=== PATIENT | female | born 1965 | race Hispanic/Latino ===

== ENCOUNTER 2017-04-12 16:18 | Emergency (ER) | payer OTHER ==
--- NOTE | 2017-04-13 11:25 | RAD ---
PROCEDURE: Left Wrist Radiographs. HISTORY: POST REDUCTION LEFT WRIST COMPARISON: None. FINDINGS: BONES: Anatomic alignment noted post close reduction. Limitations of the current study: Detail obscured by overlying fiberglass cast. JOINTS: Normal. No dislocation. SOFT TISSUES: Normal. OTHER FINDINGS: None. IMPRESSION: Limited assessment postreduction radiographs left wrist. Incomplete visualization of radial and ulnar fractures.
== END 2017-04-12 19:30 | disposition home or self-care (01) ==
LOC: ED 16:18
DX: S62.102D Fracture of unspecified carpal bone, left wrist, subsequent encounter for fracture with routine healing (principal); W01.0XXD Fall on same level from slipping, tripping and stumbling without subsequent striking against object, subsequent encounter